=== PATIENT | female | born 1930 | race Caucasian/White ===

== ENCOUNTER 2018-08-28 14:07 | Emergency (ER) | payer OTHER ==
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
[2018-08-28] MEDS ORDERED: TETRACAINE 0.5% OPHTH SOLN 2 ML BOTTLE OD ONE (14:37)
[2018-08-28] MEDS ORDERED: TETRACAINE 0.5% OPHTH SOLN 2 ML BOTTLE ONE (14:38)
[2018-08-28] MEDS ORDERED: FLUORESCEIN NA 1 EA STRIP ONE (14:38)
[2018-08-28 14:42] VITALS: BP 116/89; PULSE 76; BMI 28.5
[2018-08-28] MEDS ORDERED: ERYTHROMYCIN 0.5% OPHTHALMIC OINTMENT 3.5 GM TUBE OS ONE (15:10)
[2018-08-28] MEDS ORDERED: ERYTHROMYCIN 0.5% OPHTHALMIC OINTMENT 3.5 GM TUBE ONE (15:12)
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
--- NOTE | 2018-08-28 18:12 | PDOC ---
*Physical Exam - Vital Signs Last Vital Signs Temp Pulse Resp BP Pulse Ox 76 18 116/89 97 08/28/18 14:12 08/28/18 14:12 08/28/18 14:12 08/28/18 14:12 ED Treatment Course - Medications Given in the ED: ED Medications Discontinued Medications Generic Name Dose Route Start Last Admin Trade Name Jose PRN Reason Stop Dose Admin Erythromycin 1 applic 08/28/18 15:10 08/28/18 15:17 Erythromycin 0.5% Eye Ointment OS 08/28/18 15:11 1 applic ONCE ONE Administration Tetracaine HCl 1 drop 08/28/18 14:37 08/28/18 14:49 Pontocaine OD 08/28/18 14:38 1 drop ONCE ONE Administration Medical Decision Making - Medical Decision Making 08/28/18 18:11 ambulance here to take to [facility] *DC/Admit/Observation/Transfer Diagnosis at time of Disposition: Corneal abrasion Qualifiers: Encounter type: initial encounter Laterality: left Qualified Code(s): S05.02XA - Injury of conjunctiva and corneal abrasion without foreign body, left eye, initial encounter - Discharge Dispostion Disposition: ASSISTED FACILITY Condition at time of disposition: Stable - Prescriptions Prescriptions: Erythromycin 0.5% Eye Ointment [Erythromycin 0.5% Eye Ointment -] 1 applic OS TID #1 tube Erythromycin 0.5% Eye Ointment [Erythromycin 0.5% Eye Ointment -] 1 applic OS TID #1 tube Erythromycin 0.5% Eye Ointment [Erythromycin 0.5% Eye Ointment -] 1 applic OS TID #1 tube Erythromycin 0.5% Eye Ointment [Erythromycin 0.5% Eye Ointment -] 1 applic OS TID #1 tube Erythromycin 0.5% Eye Ointment [Erythromycin 0.5% Eye Ointment -] 1 applic OS TID #1 tube - Referrals Referrals: Sina Cook [Primary Care Provider] - Justin Carnes MD [Staff Physician] - - Patient Instructions Printed Discharge Instructions: DI for Corneal Abrasion Additional Instructions: You were seen in the ED for complaints of eye pain and injury. In the ED you were evaluated with a fluorescein dye ophthalmologic exam. Your results showed a L corneal abrasion. There does not appear to be an acute need for immediate hospitalization. You are advised to follow up with your Primary Care Physician within 1 week. You were given a referral to an [employer] and are advised to follow up within 2 days. You were given a prescription for antibiotic eye ointment and are advised to use as indicated. Return to the ED immediately if you experience worsening eye pain, discharge or bleeding from the eye, fevers or changes in vision. - Post Discharge Activity
== END 2018-08-28 18:55 ==
LOC: JER 14:07
DX: S05.02XA Injury of conjunctiva and corneal abrasion without foreign body, left eye, initial encounter (principal); H11.32 Conjunctival hemorrhage, left eye; W50.0XXA Accidental hit or strike by another person, initial encounter; Y93.89 Activity, other specified; Y92.128 Other place in nursing home as the place of occurrence of the external cause; Y99.8 Other external cause status; I10 Essential (primary) hypertension; I48.91 Unspecified atrial fibrillation; F03.90 Unspecified dementia, unspecified severity, without behavioral disturbance, psychotic disturbance, mood disturbance, and anxiety; H35.30 Unspecified macular degeneration
CPT/HCPCS: 99282-25